=== PATIENT | male | born 1955 | race Caucasian/White ===

== ENCOUNTER 2019-01-19 05:32 | Day surgery (SDC) | payer OTHER ==
[~2019-01-19] VITALS: Ht 182.9 cm; Wt 104.3 kg
[~2019-01-19 05:32] MED LIST: ABILIFY10 MG PO; CHLORPROMAZINE100 MG PO; FLONASE 0.05%50 MCG NASAL; HYDROCHLOROTHIA25 M2 PO; IBUPROFEN 400400 M2 PO; IPRATROPIU0.2 MG/1 M INH; LOPERAMIDE 2 MG2 M1 PO; LOPROX90 GM TOP; MUPIROCIN22 GM TOP; PRINIVIL20 M1 PO; SYMBICORT80 MCG/4.1 INH; SYNTHROID75 MCG PO; TERAZOSIN HCL10 MG PO; TESSALON PERLE100 MG PO; THEREMS-M1 EACH PO; TYLENOL325 MG PORT; ZYRTEC 10 MG TA10 MG PO
[2019-01-19 11:00] VITALS: BP 123/81
--- NOTE | 2019-01-23 06:18 | O ---
[facility] [place] [address] OPERATIVE REPORT Name: FADI HANLEY Room #: DEP [facility]..#: [id number] Admission: 01/19/19 ������������������ Attend Phys: Jeet Wright MD Discharge: 01/19/19 ������������������ Date of : 51 Report #: [id number] THIS REPORT FOR: //name// CC: LIDA Wright DATE OF SERVICE: 01/19/2019 PREOPERATIVE DIAGNOSES: Multiple sudoriferous inclusion cysts of right upper lid, right lower lid, left upper lid, left lower lid and left medial canthus. POSTOPERATIVE DIAGNOSES: Multiple sudoriferous inclusion cysts of the right upper lid, right lower lid, left upper lid, left lower lid, and left medial canthus. PROCEDURE: 1. Excision of inclusion cyst of right upper lid with multilayered flap repair of defect. 2. Excision of multicystic right lower lid inclusion cyst with myocutaneous flap repair of defect. 3. Excision of multicystic left medial canthal, upper lid and lower lid inclusion cyst with canthoplasty repair of defect. SURGEON: Jeet Wright M.D. MEDICAL REVIEW SPECIALIST: None. ANESTHESIA: General. COMPLICATIONS: None. 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 The lesions are large enough to obstruct lacrimal outflow. He presents today for excision of these lesions with repair of the ensuing defect. Informed consent was obtained to include but not limited to the potential risk for loss of vision, bleeding, infection, failure to improve the problem and the potential need for further surgery or treatment. DESCRIPTION OF PROCEDURE: The patient was taken to the operating room where general anesthesia was undertaken. The medial upper lids and lower lids and medial canthi were bilaterally anesthetized with Xylocaine with epinephrine mixed with Marcaine and Wydase. The patient was subsequently prepped and draped in the usual sterile fashion. [address] [address] OPERATIVE REPORT Name: FADI HANLEY Room #: DEP [facility]..#: [id number] Admission: 01/19/19 ������������������ Attend Phys: Jeet Wright MD Discharge: 01/19/19 ������������������ Date of : 51 Report #: [id number] Attention was first turned to the medial upper lid lesion. Incisions were then made around the base of the lesion 360 degrees. Care was taken to ensure that the cyst itself was not ruptured. The dissection was carried down on to the tarsal plate across the width of the lesion, which encompassed approximately half of the upper eyelid. The lesion was excised en bloc without rupturing the cyst. Hemostasis was achieved with pinpoint monopolar cautery. A multilayered myocutaneous flap was then developed from laterally and rotated into the medial lower position to tighten the lid and not draw the lid away from the globe. Hemostasis was then re-achieved. That flap was then advanced and secured with a multilayered closure of 6-0 plain gut suture. Attention was then turned to the care of the lesion of the right lower lid. A 360-degree incision was made through the skin over the lesion around its entirety. The dissection was then carried down around the base of the lashes on to the tarsal plate where it was subsequently excised off the tarsal plate across the width of the lid and down into the orbicularis muscle. The lesion was not ruptured. The lesion was excised en bloc. Hemostasis was then re-achieved. A myocutaneous flap was then developed laterally to be rotated into position to correct the anterior lamellar defect. Hemostasis was then re-achieved. The flap was secured with multiple interrupted 6-0 plain gut sutures tightening the lower lid and drawing the lid back up against the globe. Attention was then turned to the left side, which had larger lesions. The incision was then made 360 degrees around the lesion, which went all the way around the medial canthus and out onto the upper and lower lids at the junction of the medial and lateral half of the lid. The dissection was carried down onto the tarsal plate and then back into the medial canthal area, taking care to try and not disrupt the underlying canalicular epithelium, which was exposed over the area of the medial commissure where the lesion was largest. The polycystic lesion was then passed off the field. A canthoplasty repair was then accomplished mobilizing tissue off the nasal bridge. This was advanced in such a manner that it could be closed with multiple interrupted 6-0 plain gut sutures, drawing the lid back on to the globe. This did open up the medial commissure to some degree, but not a tremendous amount. The wounds were then cleaned and dressed with erythromycin ophthalmic ointment. The patient subsequently transported to the recovery area having tolerated the procedures well with no anesthetic or operative complications being noted. ��������������������������������������������� <ELECTRONICALLY SIGNED> ���������������������������������������� By: Jeet Wright MD ��������������������������������������������� 01/23/19 0618 [id number] Jeet Wright MD /nt
--- NOTE | 2019-01-23 11:06 | PATH ---
[facility] [place] [address] [place] [address] PATHOLOGY RPT PROCEDURE Name: FADI HANLEY Zulma Room #: DEP [facility] M.R.#: [id number] ������������������ Admission: 01/19/19 ������������������ Date of : 51 Discharge: 01/19/19 Report #: [id number] Path Case #: [id number] [facility] Accession Number: [id number] . 01 Material submitted: . PART A: eye - RIGHT INCLUSION CYSTS. Modifiers: right PART B: eye - LEFT INCLUSION CYSTS. Modifiers: left . 01 Clinical history: . Lesions bilateral eyelids. . 02 Diagnosis: A. 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 - Negative for malignancy. . B. Skin, left inclusion cysts, excision: - Eccrine hidrocystoma. - Overlying squamous epithelium showing reactive changes. - Negative for malignancy. . (IUV:anabell; 01/20/2019) MBSumeet/01/20/2019 . 02 Electronically signed: . Briana Augustin MD, Pathologist NPI- [id number] . 01 Gross description: . A. Received in formalin labeled "Fadi Hanley, right inclusion cysts" are two irregular fragments of singh-white skin and underlying soft tissue measuring 0.6 x 0.5 x 0.3 cm and 1.0 x 0.4 x 0.4 cm. The margins are inked black. Two possible cystic structures are identified on the deep surfaces, measuring 0.3 cm in greatest dimension each. The specimen is submitted entirely without sectioning in cassette A1. . B. Received in formalin labeled "Fadi Hanley, left inclusion cysts" is a singh-white irregular portion of skin measuring 1.9 x 0.5 x 0.4 cm. The deep surface displays multiple intact yellow-singh cystic structures ranging from 0.2-0.3 cm in greatest dimension. The margin is inked and the specimen is submitted without sectioning in cassette B1. [place] SYC/SYC . 02 Pathologist provided ICD-10: D23.39 . [address] [place] [address] PATHOLOGY RPT PROCEDURE Name: FADI HANLEY Room #: DEP [facility].#: [id number] ������������������ Admission: 01/19/19 ������������������ Date of : 51 Discharge: 01/19/19 Report #: [id number] Path Case #: [id number] [facility] . [id number], [id number] Specimen Comment: A courtesy copy of this report has been sent to Specimen Comment: [phone]. Specimen Comment: Report sent to Performed at: [address] [place], [place] [id number] MD Flip Rg MD Phone: [phone] Performed at: [address] [id number] MD Briana Augustin MD Phone: [phone]
== END 2019-01-19 14:28 | disposition home or self-care (01) ==
LOC: EDBD → OR 05:32 → TBA 05:32 → OR 09:49
DX: D23.122 Other benign neoplasm of skin of left lower eyelid, including canthus (principal); D23.112 Other benign neoplasm of skin of right lower eyelid, including canthus; D23.121 Other benign neoplasm of skin of left upper eyelid, including canthus; D23.111 Other benign neoplasm of skin of right upper eyelid, including canthus; I10 Essential (primary) hypertension; J45.909 Unspecified asthma, uncomplicated; E03.9 Hypothyroidism, unspecified; Z98.890 Other specified postprocedural states; Z79.899 Other long term (current) drug therapy; Z88.8 Allergy status to other drugs, medicaments and biological substances
CPT/HCPCS: 50010; 50101; 50386; 50398; 51636; 56531; 62110; 62900; 64037; 70005